=== PATIENT | female | born 1985 | race African-American/Black ===

== ENCOUNTER 2019-01-14 04:36 | Emergency (ER) | payer MEDICAID, OTHER ==
[~2019-01-14] VITALS: Ht 162.6 cm; Wt 110.0 kg
[~2019-01-14 04:36] MED LIST: CALC-1042 PO; FOLI-43 PO; PHEN100C4; PREN1TAB46
[2019-01-14] MEDS ORDERED: HYDROCODONE/ACETAMINOPHEN 5/325MG TABLET PO ONE (07:45)
[2019-01-14 07:56] VITALS: BP 134/83
== END 2019-01-14 08:34 | disposition home or self-care (01) ==
LOC: ER 04:36
DX: H92.01 Otalgia, right ear (principal); K08.89 Other specified disorders of teeth and supporting structures; Z98.890 Other specified postprocedural states; Z90.49 Acquired absence of other specified parts of digestive tract; Z79.899 Other long term (current) drug therapy; Z88.8 Allergy status to other drugs, medicaments and biological substances; Z88.6 Allergy status to analgesic agent
CPT/HCPCS: 99283

== ENCOUNTER 2019-01-30 02:37 | Emergency (ER) | payer OTHER ==
[~2019-01-30] VITALS: Ht 162.6 cm; Wt 112.5 kg
[2019-01-30] MEDS ORDERED: HYDROCODONE/ACETAMINOPHEN 5/325MG TABLET PO STA (06:25)
[2019-01-30 07:04] VITALS: BP 122/68
== END 2019-01-30 07:18 | disposition home or self-care (01) ==
LOC: ER 02:37
DX: K02.9 Dental caries, unspecified (principal); G40.909 Epilepsy, unspecified, not intractable, without status epilepticus; Z90.49 Acquired absence of other specified parts of digestive tract; Z88.6 Allergy status to analgesic agent
CPT/HCPCS: 99282